=== PATIENT | male | born 1980 | race Caucasian/White ===

== ENCOUNTER 2016-06-27 05:56 | Observation (INO) | payer MEDICAID ==
[~2016-06-27] VITALS: Ht 182.9 cm; Wt 129.7 kg
[~2016-06-27 05:56] MED LIST: AGM875T PO; AMOX-355 PO; AMOX500C2 PO; CARB200T PO; CEPH500C PO; D ME PO; DEPAKOTE; DOXY100C2 PO; HYDR-3583 PO; HYDR-3714 PO; LITHIUM PO; LTH300C PO; NALOXONE 2 MG/2 ML (NARCAN) SYR ONE; PHEN-633 PO; PRD20T PO; [UNRECOGNIZED DRUG - CODE] PO; [UNRECOGNIZED DRUG - OTHER] PO
--- OUTSIDE RECORDS SUMMARY | 2016-06-27 06:01 | XMS REPORT | Continuity of Care Document ---
Author Author Interface Organization Interface Address Unknown Phone Unavailable Problems Problem Status Onset Date Classification Date Reported Comments Source Medications Medication Details Route Status Patient Instructions Ordering Provider Order Date Source Allergies, Adverse Reactions, Alerts Substance Category Reaction Severity Reaction type Status Date Reported Comments Source Immunizations Immunization Date Given Site Status Last Updated Comments Source Results Order Name Results Value Reference Range Date Interpretation Comments Source Vital Signs Vital Sign Value Date Comments Source Encounters Location Location Details Encounter Type Encounter Number Reason For Visit Attending Provider ADM Date DC Date Status Source "" "" Outpatient [id number] Physician Non-Staff 10/07/2005 10/07/2005 Active [facility], [facility] Procedures Procedure Code Date Perfomer Comments Source
[2016-06-27] MEDS ORDERED: LACTATED RINGERS 1,000 ML IV ONE (06:02)
[2016-06-27] MEDS ORDERED: NALOXONE 2 MG/2 ML (NARCAN) SYR IV ONE (06:15)
[2016-06-27 06:16] LABS: BASOPHILS % (AUTO) 0 % (0-10); EOSINOPHILS # (AUTO) 0.4 10^3/uL (0.0-0.3); EOSINOPHILS % (AUTO) 5 % (0-10); LYMPHOCYTES # (AUTO) 2.1 X 10^3 (1.0-4.0); LYMPHOCYTES % (AUTO) 26 % (12-44); MEAN CORPUSCULAR HEMOGLOBIN 30 PG (25-34); MEAN CORPUSCULAR HGB CONC 33 G/DL (32-36); MEAN CORPUSCULAR VOLUME 91 FL (80-99); MEAN PLATELET VOLUME 9.8 FL (7.4-10.4); MONOCYTES # (AUTO) 1.1 X 10^3 (0.0-1.0); MONOCYTES % (AUTO) 13 % (0-12); NEUTROPHILS # (AUTO) 4.6 X 10^3 (1.8-7.8); NEUTROPHILS % (AUTO) 56 % (42-75); PLATELET COUNT 271 10^3/uL (130-400); RED BLOOD COUNT 4.51 10^6/uL (4.35-5.85); RED CELL DISTRIBUTION WIDTH 13.4 % (10.0-14.5); WHITE BLOOD COUNT 8.2 10^3/uL (4.3-11.0)
[2016-06-27 06:21] LABS: BILIRUBIN,URINE NEGATIVE (NEGATIVE); KETONES,URINE 3+ (NEGATIVE); LEUKOCYTE ESTERASE ,URINE 1+ (NEGATIVE); NITRITE,URINE NEGATIVE (NEGATIVE); PH,URINE 6 (5-9); PROTEIN,URINE 1+ (NEGATIVE); UROBILINOGEN,URINE 1 MG/DL (NORMAL)
[2016-06-27 06:30] LABS: PROTHROMBIN TIME PATIENT 12.7 SEC (12.2-14.7)
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
[2016-06-27 06:37] LABS: ALANINE AMINOTRANSFERASE 31 U/L (0-55); ALBUMIN 4.4 G/DL (3.2-4.5); ANION GAP 13 MMOL/L (5-14); ASPARTATE AMINO TRANSFERASE 29 U/L (5-34); BILIRUBIN,TOTAL 0.8 MG/DL (0.1-1.0); BLOOD UREA NITROGEN 14 MG/DL (7-18); BUN/CREATININE RATIO 17; CALCIUM 8.8 MG/DL (8.5-10.1); CARBON DIOXIDE 19 MMOL/L (21-32); CHLORIDE 107 MMOL/L (98-107); CREATINE KINASE 523 U/L (30-200); CREATININE SERUM 0.81 MG/DL (0.60-1.30); GFR ESTIMATED > 60; GLUCOSE 121 MG/DL (70-105); MAGNESIUM 2.1 MG/DL (1.8-2.4); POTASSIUM 3.5 MMOL/L (3.6-5.0); SODIUM 139 MMOL/L (135-145); SQUAMOUS EPITHELIAL CELL,UR 0-2 /HPF
[2016-06-27 06:40] LABS: ALCOHOL < 10 MG/DL (<10)
[2016-06-27 06:57] LABS: TROPONIN I < 0.30 NG/ML (<0.30)
--- NOTE | 2016-06-27 07:28 | Diagnostic Imaging Report ---
PROCEDURE: CT head without contrast. TECHNIQUE: Multiple contiguous axial images were obtained through the brain without the use of intravenous contrast. INDICATION: Altered mental status. FINDINGS: There is no intracranial hemorrhage, hydrocephalus, edema, mass or mass effect. No evidence for elevated intracranial pressures. The basilar cistern is patent. The sulci non-effaced. There are no abnormal extra-axial collections. A shallow air-fluid levels involving the partially visualized maxillary sinuses with ethmoid air cell membrane thickening. There is no mastoid effusion. The calvarium is unremarkable. IMPRESSION: Normal appearance of the brain. Maxillary sinus air-fluid levels with ethmoid air cell membrane thickening, acute sinusitis could not be excluded. Dictated by: Dictated on workstation # [id number]
--- NOTE | 2016-06-27 07:30 | Diagnostic Imaging Report ---
INDICATION: Altered mental status. Compared 07/08/2014 FINDINGS: The heart size mildly enlarged and increased from prior. There is also some prominence of the central and upper lobe pulmonary venous structures as a new finding. Lungs, however, are free of infiltrate. No sammi edema, pleural fluid or pneumothorax. IMPRESSION: Development of borderline cardiomegaly and venous congestion has occurred, however, there is no edema, pneumonia or acute pleural pathology. Dictated by: Dictated on workstation # [id number]
[2016-06-27 09:00] VITALS: BP 112/64
[2016-06-27] MEDS ORDERED: LACTATED RINGERS 1,000 ML IV SCH (09:30)
[2016-06-27] MEDS ORDERED: LORazepam 1 MG (ATIVAN) TAB PO PRN (09:30)
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
[2016-06-27] MEDS ORDERED: FLU TRIvalent (5 YOA+) 2016-17 (AFLURIA) 0.5 ML IM ONE (12:15)
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
--- NOTE | 2016-06-27 13:03 | Discharge Inst-Simple/Standard ---
Discharge Inst-Standard Patient Instructions/Follow Up Plan of Care/Instructions/FU: Establish with local outpatient drug and alcohol program. No further use of illicit substances Establish with local provider. [facility] health with the likely your best bet Activity as Tolerated: Yes Goal: Returning to drug-free status Discharge Diet: No Restrictions AVIVA JOHN MD Jun 27, 2016 13:03
== END 2016-06-27 13:01 | disposition left against medical advice (07) ==
LOC: EDUNIT# 05:56 → ER 05:57 → ICU 07:13
PROVIDERS: ADMIT Internal Medicine; ATTEND Internal Medicine
DX: R41.82 Altered mental status, unspecified (principal); F15.129 Other stimulant abuse with intoxication, unspecified; F12.129 Cannabis abuse with intoxication, unspecified; F11.129 Opioid abuse with intoxication, unspecified; F17.210 Nicotine dependence, cigarettes, uncomplicated
CPT/HCPCS: 36415; 51702; 70450; 71010; 80053; 80185; 80306; 80320; 81000; 82550; 82553; 83735; 84443; 84484; 85025; 85610; 85730; 87081; 93005; 93041; 96361; 96374; G0378